=== PATIENT | male | born 1980 | race Caucasian/White ===

== ENCOUNTER 2021-04-12 00:45 | Observation (INO) ==
[2021-04-12] MEDS ORDERED: GI Cocktail 40 ML EACH PO ONE (01:12)
[2021-04-12] MEDS ORDERED: Aspirin 81 MG TAB.CHEW PO ONE (01:12)
[2021-04-12 01:33] LABS: Basophils # 0.1 K/mcL (0.0-0.2); Basophils % 1.1 %; Eosinophils # 0.2 K/mcL (0.0-0.6); Eosinophils % 2.9 %; Hematocrit 37.7 % (37.5-50.1); Hemoglobin 12.8 g/dL (12.9-16.9); Immature Granulocytes % 0.6 % (0-4); Lymphocytes # 2.2 K/mcL (0.6-4.6); Lymphocytes % 32.9 %; Mean Corpuscular Hemoglobin 30.2 pg (28.0-33.3); Mean Corpuscular Volume 88.9 fL (83.0-100.0); Mean Platelet Volume 10.3 fL (9.4-12.4); Monocytes # 0.5 K/mcL (0.0-1.3); Monocytes % 8.1 %; Neutrophils # 3.6 K/mcL (1.6-8.9); Platelet Count 253 K/mcL (140-400); Red Blood Count 4.24 M/mcL (4.19-5.50); Red Cell Distribution Width 12.1 % (11.5-14.5); Segmented Neutrophils % 54.4 %; White Blood Count 6.5 K/mcL (4.3-11.1)
[2021-04-12 01:41] LABS: INR 0.9; Prothrombin Time 10.5 Seconds (9.4-12.1)
[2021-04-12 01:44] LABS: Activated Partial Thrombo Time 23.9 Seconds (26.0-36.0)
[2021-04-12 02:14] LABS: Alanine Aminotransferase 27 Units/L (7-52); Albumin 4.2 g/dL (3.5-5.7); Albumin/Globulin Ratio 1.7 (1.1-2.2); Alkaline Phosphatase 51 Units/L (34-104); Aspartate Amino Transferase 19 Units/L (13-39); BUN/Creatinine Ratio 14 (6-26); Bilirubin,Direct 0.1 mg/dL (0.0-0.2); Bilirubin,Indirect 0.5 mg/dL (0.0-1.0); Bilirubin,Total 0.6 mg/dL (0.3-1.0); Blood Urea Nitrogen 13 mg/dL (6-20); Calcium 9.1 mg/dL (8.6-10.3); Carbon Dioxide 22 mEq/L (23-29); Chloride 102 mEq/L (98-107); Globulin 2.5 g/dL (2.4-3.5); Glucose 109 mg/dL (70-105); Lipase 42 Units/L (11-82); Osmolality,Calculated 281 (280-300); Potassium 3.6 mEq/L (3.5-5.1); Sodium 135 mEq/L (136-145); Total Protein 6.7 g/dL (6.4-8.9); Troponin I < 0.03 ng/mL (< 0.04); eGFR For African Americans > 60 (> 60); eGFR For Non-African Americans > 60 (> 60)
[2021-04-12] MEDS ORDERED: Naloxone 0.4 MG/ML INJ IVP PRN (07:25)
[2021-04-12] MEDS ORDERED: Regadenoson 0.4 MG/5 ML SYRINGE IVP ONE (08:00)
[2021-04-12 08:48] LABS: Chol/HDL Ratio 4.5 (0-4.9)
[2021-04-12] MEDS ORDERED: Acetaminophen 325 MG TABLET PO PRN (10:37)
[2021-04-12 11:14] VITALS: BP 133/86
[2021-04-13 15:00] LABS: Estimated Average Glucose 108 mg/dl; Hemoglobin A1C 5.4 %
== END 2021-04-12 12:21 | disposition home or self-care (01) ==
LOC: EMEROOARM 00:45 → CDU 00:45
PROVIDERS: ADMIT Internal Medicine; ATTEND Internal Medicine